=== PATIENT | female | born 1985 | race Caucasian/White ===

== ENCOUNTER 2023-12-31 11:20 | Emergency (ER) | payer OTHER, SELFPAY ==
[2023-12-31] VITALS (10 sets, daily range): BP systolic 106–123; BP diastolic 56–73; PULSE 64–85; RESP 16–20; TEMP 36.4–37.3; O2SAT 98–100; BMI 24.0
[2023-12-31 11:40] LABS: Add Manual Diff / Slide Review NO; Basophils Absolute Auto 100 /uL (0-100); Basophils Percent Auto 0.9 % (0-2); Eosinophils Absolute Auto 100 /uL (0-450); Eosinophils Percent Auto 0.6 % (2-4); Hematocrit 38.2 % (36-46); Hemoglobin 12.8 g/dL (12.0-16.0); Lymphocytes Absolute Auto 3200 /uL (1100-4500); Lymphocytes Percent Auto 35.5 % (25-40); Mean Corpuscular HGB Conc 33.4 % (30-36); Mean Corpuscular Hemoglobin 30.3 PG (26-34); Mean Corpuscular Volume 90.7 fL (80-100); Monocytes Absolute Auto 800 /uL (0-900); Monocytes Percent Auto 8.9 % (3-14); Neutrophils Absolute Auto 4800 /uL (1500-7000); Neutrophils Percent Auto 54.1 % (50-75); Platelet Count 425 X10^3/uL (150-400); Red Blood Cell Count 4.21 X10^6/uL (4.0-5.2); Red Cell Distribution Width 12.7 % (11.6-14.8); White Blood Cell Count 8.9 X10^3/uL (4.5-11.0)
[2023-12-31 11:51] LABS: Alanine Aminotransferase 20 IU/L (<35); Albumin Globulin Ratio 1.2 (1.0-2.8); Alkaline Phosphatase 60 U/L (38-126); Aspartate Aminotransferase 27 IU/L (14-36); BUN Creatinine Ratio 17.3 (6-22); Bilirubin Total 0.5 mg/dL (0.2-1.3); Blood Urea Nitrogen 13 mg/dL (7-17); Calcium 8.9 mg/dL (8.4-10.2); Carbon Dioxide 28 mmol/L (22-32); Chloride 103 mmol/L (98-107); Estimated Glomerular Filt Rate > 60 mL/min (>60); Globulin 3.4 g/dL (1.7-4.1); Glucose 104 mg/dL (70-100); HEMOLYSIS < 15 (0-50); Lipase 77 U/L (23-300); Potassium 3.1 mmol/L (3.4-5.1); Sodium 137 mmol/L (137-145); Total Protein 7.4 g/dL (6.3-8.2)
[2023-12-31 12:02] LABS: Bacteria Urine Moderate (10-30); Culture Indicated Urine Specimen Cultured; RBC Urine 10-30/HPF (0-5/HPF); Squamous Epithelial Cell Urine 10-30 /HPF (0-5/HPF); Urine Volume 10mL (spun); WBC Urine 10-30/HPF (0-5/HPF)
[2023-12-31] MEDS: KETOROLAC 30 MG/ML VIAL 15 MG IV ×2 (12:07→16:02)
[2023-12-31] MEDS: ONDANSETRON 4 MG/2 ML INJ IV (12:07)
[2023-12-31] MEDS: POTASSIUM CHLORIDE 20 MEQ TAB 40 MEQ PO (12:22)
--- NOTE | 2023-12-31 13:49 | ED_ITS ---
HPI - Abdominal Pain General Chief Complaint: Abdominal Pain Stated Complaint: severe r side pain Time Seen by Provider: 12/31/23 12:14 Source: patient Mode of arrival: Ambulatory Limitations: no limitations History of Present Illness HPI narrative: 38-year-old female who states she has had a little bit of right flank pain for the last several days but was moving lifting a lot of furniture did not think much of it and then developed sudden increase of right flank which has since moved around anteriorly. Patient states with sudden onset improved after Toradol here in the department. States no fevers. She felt nauseated but no vomiting. No chest pain or shortness of breath. States bowel movements of overall been normal had 2 bowel movements today 1 was normal soft and formed in the other was slightly looser. States no dysuria, urgency frequency or hematuria that she was appreciated. No new vaginal bleeding or discharge. Still gets menses but states they have become progressively longer over time. States no daily medications. No prior surgeries. No known drug allergies. Denies any regular tobacco, no alcohol for 10 years, no recreational drugs. Related Data Previous Rx's Medication Instructions Recorded cephalexin 500 mg tablet 500 mg PO Q8H 7 days #21 tabs 12/31/23 meloxicam 7.5 mg tablet 7.5 mg PO BID #10 tabs 12/31/23 ondansetron 4 mg disintegrating 4 mg PO Q6H PRN nausea and 12/31/23 tablet vomiting #10 tabs tamsulosin 0.4 mg capsule (Flomax) 0.4 mg PO DAILY #7 caps 12/31/23 Allergies Allergy/AdvReac Type Severity Reaction Status Date / Time No Known Drug Allergies Allergy Verified 12/31/23 11:21 Review of Systems Review of Systems ROS Unobtainable: All systems reviewed & are unremarkable except as noted in HPI and below Patient History Social History Smoking Status: Never smoker Smoking Status: Never smoker Substance Use Type: does not use Exam Narrative Exam Narrative: GENERAL: Alert and oriented x three, in mild distress. Patient had received medications. HEENT: Head normocephalic, atraumatic, EOMI, pupils reactive, face symmetric, moist mucous membranes NECK: Supple, full range of motion CARDIOVASCULAR: Regular rate and rhythm without murmurs, rubs or gallops. RESPIRATORY: Breath sounds equal bilaterally, no wheezes rales or rhonchi. ABDOMEN: Soft, nontender. Normoactive bowel sounds all 4 quadrants. No guarding or rebound, rigidity, no mass : No CVA tenderness bilaterally EXTREMITIES: Normal range of motion, no clubbing or edema. Neurovascularly intact NEUROLOGICAL: Cranial nerves II through XII grossly intact. Moving all extremities SKIN: Warm, dry, no petechiae, no rashes or lesions. Initial Vital Signs Initial Vital Signs: Vital Signs Temperature 97.5 F L 12/31/23 11:21 Pulse Rate 85 12/31/23 11:21 Respiratory Rate 20 12/31/23 11:21 Blood Pressure 106/57 L 12/31/23 11:21 Pulse Oximetry 100 12/31/23 11:21 Oxygen Delivery Method Room Air 12/31/23 11:21 Course Orders Ordered: ED Orders 12/31/23 11:32 Complete Blood Count AUTO DIFF Stat Comprehensive Metabolic Panel Stat Lipase Stat Urine Culture Stat Urine Microscopic Stat 12/31/23 13:52 US renal complete Stat Ondansetron HCl (Ondansetron 4 Mg/2 Ml Inj) 4 mg IV NOW PRN PRN Reason: Nausea And Vomiting Last Admin: 12/31/23 12:07 Dose: 4 mg Documented By: CHETAN Ondansetron HCl (Ondansetron 4 Mg Odt) 4 mg PO NOW PRN PRN Reason: Nausea And Vomiting Discontinued Medications Lidocaine HCl 5 ml/ Sodium (Chloride) 55 mls @ 330 mls/hr IV NOW ONE Stop: 12/31/23 13:57 Last Infusion: 12/31/23 14:50 Dose: Infused Documented By: Infusion: 12/31/23 14:32 Dose: 330 mls/hr Documented By: Infusion: 12/31/23 14:11 Dose: 0 mls/hr Documented By: Admin: 12/31/23 14:05 Dose: 330 mls/hr Documented By: CHETAN Ketorolac Tromethamine (Ketorolac 30 Mg/Ml Vial) 15 mg IV NOW ONE Stop: 12/31/23 12:01 Last Admin: 12/31/23 12:07 Dose: 15 mg Documented By: CHETAN Ketorolac Tromethamine (Ketorolac 30 Mg/Ml Vial) 15 mg IV NOW ONE Stop: 12/31/23 15:46 Last Admin: 12/31/23 16:02 Dose: 15 mg Potassium Chloride (Potassium Chloride 20 Meq Tab) 40 meq PO NOW ONE Stop: 12/31/23 12:15 Last Admin: 12/31/23 12:22 Dose: 40 meq Documented By: CHETAN Vital Signs Vital signs: Vital Signs - 8 hr 12/31/23 11:21 12/31/23 11:48 12/31/23 11:49 Temperature 97.5 F L Pulse Rate 85 76 Respiratory Rate 20 Blood Pressure 106/57 L 109/56 L Pulse Oximetry 100 99 Oxygen Delivery Method Room Air 12/31/23 11:49 12/31/23 12:00 12/31/23 12:01 Temperature Pulse Rate 75 66 Respiratory Rate 16 Blood Pressure 113/70 Pulse Oximetry 99 100 Oxygen Delivery Method 12/31/23 12:01 12/31/23 12:30 12/31/23 12:30 Temperature Pulse Rate 66 64 Respiratory Rate 18 18 Blood Pressure 123/68 Pulse Oximetry 99 100 Oxygen Delivery Method Room Air 12/31/23 13:00 12/31/23 13:00 12/31/23 13:30 Temperature Pulse Rate 65 Respiratory Rate 19 Blood Pressure 113/73 110/64 Pulse Oximetry 99 Oxygen Delivery Method 12/31/23 13:30 12/31/23 15:59 12/31/23 16:00 Temperature Pulse Rate 70 74 Respiratory Rate Blood Pressure 119/67 Pulse Oximetry 98 99 Oxygen Delivery Method Room Air 12/31/23 16:00 Temperature 99.1 F Pulse Rate 73 Respiratory Rate Blood Pressure Pulse Oximetry 99 Oxygen Delivery Method MDM - Abdominal Pain Lab Data 12/31/23 11:32 12/31/23 11:32 Labs: Lab Results 12/31/23 Range/Units 11:32 WBC 8.9 (4.5-11.0) X10^3/uL RBC 4.21 (4.0-5.2) X10^6/uL Hgb 12.8 (12.0-16.0) g/dL Hct 38.2 (36-46) % MCV 90.7 (80-100) fL MCH 30.3 (26-34) PG MCHC 33.4 (30-36) % RDW 12.7 (11.6-14.8) % Plt Count 425 H (150-400) X10^3/uL Neut % (Auto) 54.1 (50-75) % Lymph % (Auto) 35.5 (25-40) % [place] % (Auto) 8.9 (3-14) % Eos % (Auto) 0.6 L (2-4) % Baso % (Auto) 0.9 (0-2) % Neut # (Auto) 4800 (2846-1714) /uL Lymph # (Auto) 3200 (4912-0753) /uL [place] # (Auto) 800 (0-900) /uL Eos # (Auto) 100 (0-450) /uL Baso # (Auto) 100 (0-100) /uL Sodium 137 (137-145) mmol/L Potassium 3.1 L (3.4-5.1) mmol/L Chloride 103 (98-107) mmol/L Carbon Dioxide 28 (22-32) mmol/L BUN 13 (7-17) mg/dL Creatinine 0.75 (0.52-1.04) mg/dL Estimated GFR > 60 (>60) mL/min BUN/Creatinine Ratio 17.3 (6-22) Glucose 104 H (70-100) mg/dL Calcium 8.9 (8.4-10.2) mg/dL Total Bilirubin 0.5 (0.2-1.3) mg/dL AST 27 (14-36) IU/L ALT 20 (<35) IU/L Alkaline Phosphatase 60 (38-126) U/L Total Protein 7.4 (6.3-8.2) g/dL Albumin 4.0 (3.5-5.0) g/dL Globulin 3.4 (1.7-4.1) g/dL Albumin/Globulin Ratio 1.2 (1.0-2.8) Lipase 77 (23-300) U/L Urine RBC 10-30/hpf H (0-5/HPF) Urine WBC 10-30/hpf H (0-5/HPF) Ur Squamous Epith Cells 10-30 /hpf H (0-5/HPF) Urine Bacteria Moderate (10-30) H (None) Ur Culture Indicated? Specimen cultured Vol Urine Centrifuged 10ml (spun) Point of care testing: Point of Care Testing Test Results Negative Urine Dip Bedside Urine Glucose Negative Bedside Urine Bilirubin - Negative Bedside Urine Ketone - Negative Urine Specific [place] 1.010 Bedside Urine Occult Blood +++ Bedside Urine pH 7.0 Bedside Urine Protein - Negative Bedside Urine Urobilinogen - Negative Bedside Urine Nitrite - Negative Bedside Urine Leukocytes +++ 500 Esterase Imaging Data renal : Radiologist's Impression: [address] [address] Ultrasound Report Signed Patient: Sariah Levy MR#: [id number] : 1985 Acct:[id number] Age/Sex: 38 / F Date of Service: 12/31/23 Loc: ED Accession Number: [id number] Procedure: US renal complete Ordering Provider: Kimmy Henley D.O. PROCEDURE: US RENAL COMPLETE INDICATIONS: RIGHT FLANK PAIN TECHNIQUE: Real-time scanning was performed of the kidneys and bladder, with image documentation. COMPARISON: None. FINDINGS: Kidneys: Kidneys are normal in size. Right kidney measures 11.5 cm long; left kidney measures 11.6 cm long. Right renal cortical thickness is 1.3 cm; left renal cortical thickness is 1.1 cm. Renal cortical echotexture is normal. No hydronephrosis or nephrolithiasis. No suspicious solid mass lesions. Bladder: Pre-void bladder volume is 87 mL. Post-void residual is 0 mL. Pre- void images demonstrate no intraluminal masses or stones. On pre-void images, a unilateral left ureteral jet was noted with color Doppler interrogation. (Of note, ureteral jets may not be detectable in up to 25% of cases due to insufficient differences in specific gravity between ureteral and bladder urine). Miscellaneous: No free pelvic fluid. IMPRESSION: Unremarkable renal ultrasound. Normal size kidneys with no evidence of hydronephrosis. Dictated by: Jonathan Cabrera M.D. on 12/31/2023 at 15:04 Approved by: Jonatahn Cabrera M.D. on 12/31/2023 at 1 MDM Narrative Medical decision making narrative: 38 year old female with flank pain for several days became rapidly worse this afternoon and has not improved after medication. Does note it started to wrap around a little bit anteriorly. Symptoms seems most consistent with kidney stone on exam she has very mild right lower quadrant tenderness no flank pain. Labs show white count 8.9 hemoglobin 12.8 platelets are 425. Chemistries show a potassium of 3.1 which was replaced orally, sodium 137 otherwise normal electrolytes, BUN 13 creatinine of 0.75 glucose of 104-LFTs and lipase. Urine is negative. Point of care urine shows blood, positive leukocyte esterase. Micro shows 10-30 RBCs 10-30 WBCs 10-30 squamous, moderate bacteria was sent for culture. Renal ultrasound with right lower quadrant ultrasound. Are unremarkable renal ultrasound normal kidney size with no evidence of hydro no suspicious mass lesions. No pelvic free fluid. Patient had Toradol had good improvement in pain but then sort of returned was given a dose of lidocaine on rechecked. Patient states feel improved. On repeat abdominal exam nontender. Patient states got a little bit worse when she sat up but has not improved again. Does ask for additional dose of pain medication but nonnarcotic. Reviewed findings with patient. Discussed suspect kidney stone was unable to visualize her appendix to completely rule out appendicitis but labs imaging and workup seem most consistent. Discussed return precautions. Did have a little bit signs of infection in urine so was started on oral antibiotic as well all questions answered. Return precautions discussed. Discharge Plan Departure Patient Disposition: Home Clinical Impression: Flank pain Instructions: DI for Kidney Stones Activity Restrictions/Additional Instructions: I suspect you have a kidney stone today, your renal ultrasound was normal but does not rule out kidney stone, they did not visualize your appendix so if you have persistent worsening pain that has not improving please return for re- evaluation. You can take acetaminophen up to a 1000 mg every 6 hours as needed for pain. You can take meloxicam 1 tablet every 12 hours with this medication. Take Flomax or tamsulosin 1 tablet daily. Can take Zofran 1 tablet every 6 hours as needed for nausea. Take oral antibiotics until completed. Your urine shows some signs of potential infection. Prescription sent to [facility] in [place]. Please return for fevers, new or worsening abdominal back or flank pain, persistent vomiting, black or bloody stools, lightheadedness or passing out or other new or concerning changes. Prescriptions: New meloxicam 7.5 mg tablet 7.5 mg PO BID Qty: 10 0RF ondansetron 4 mg tablet,disintegrating 4 mg PO Q6H PRN (Reason: nausea and vomiting) Qty: 10 0RF cephalexin 500 mg tablet 500 mg PO Q8H 7 Days Qty: 21 0RF tamsulosin [Flomax] 0.4 mg capsule 0.4 mg PO DAILY Qty: 7 0RF Referrals: Miscellaneous,[facility] [Primary Care Provider] - Stand Alone Forms: Patient Portal/API/Survey
--- NOTE | 2023-12-31 13:52 | DI.US.S_ITS ---
PROCEDURE: US RENAL COMPLETE INDICATIONS: RIGHT FLANK PAIN TECHNIQUE: Real-time scanning was performed of the kidneys and bladder, with image documentation. COMPARISON: None. FINDINGS: Kidneys: Kidneys are normal in size. Right kidney measures 11.5 cm long; left kidney measures 11.6 cm long. Right renal cortical thickness is 1.3 cm; left renal cortical thickness is 1.1 cm. Renal cortical echotexture is normal. No hydronephrosis or nephrolithiasis. No suspicious solid mass lesions. Bladder: Pre-void bladder volume is 87 mL. Post-void residual is 0 mL. Pre-void images demonstrate no intraluminal masses or stones. On pre-void images, a unilateral left ureteral jet was noted with color Doppler interrogation. (Of note, ureteral jets may not be detectable in up to 25% of cases due to insufficient differences in specific gravity between ureteral and bladder urine). Miscellaneous: No free pelvic fluid. IMPRESSION: Unremarkable renal ultrasound. Normal size kidneys with no evidence of hydronephrosis. Dictated by: Jonathan Cabrera M.D. on 12/31/2023 at 15:04 Approved by: Jonathan Cabrera M.D. on 12/31/2023 at 15:05
[2023-12-31] MEDS: LIDOCAINE 2% (PF) 5 ML in SODIUM CHLORIDE 0.9% 50 ML 330 ML IV (14:05)
== END 2023-12-31 16:03 | disposition home or self-care (01) ==
PROVIDERS: Emergency Provider Emergency Medicine
DX: R10.9 Unspecified abdominal pain (principal)
CPT/HCPCS: 36415; 76770; 80053; 81003; 81015; 81025; 83690; 85025; 87086; 96365; 96375; 96376; 99284; J1885; J2405